=== PATIENT | male | born 2000 | race Caucasian/White ===

== ENCOUNTER 2021-02-04 15:15 | Emergency (ER) | payer OTHER, SELFPAY ==
--- NOTE | ~2021-02-04 | CT_ITS ---
EXAMINATION: CT soft tissue neck w con DATE: 02/04/2021 21:39 INDICATION: Right jaw pain and swelling with lymphadenopathy. TECHNIQUE: Computed tomography (CT) of the neck was performed with 75 mL Omnipaque-350 intravenous co ntrast. Automated exposure control and iterative reconstruction technique were employed. The dose-andrea gth product was 504.09 mGy-cm. COMPARISON: None FINDINGS: Thyroid gland is unremarkable. Submandibular and parotid glands are symmetric. There are scattered normal-sized lymph nodes in the neck, no pathologically enlarged lymphadenopathy. This includes a rel atively superficial subcutaneous lymph node at the lateral right base of the neck medially underlying the marker indicating the palpable abnormality of concern which measures 6 mm short axis diameter wh ich is within normal limits. No masses, abscess or other abnormal fluid collections identified. The vasculature is patent and normal in caliber. Mixing artifact from unopacified blood is seen in the ca udal aspect of the bilateral jugular veins. Airway is unremarkable. No osseous abnormalities. Bilate ral temporomandibular joints are normal. Orbits are unremarkable. Superior mediastinum is unremarkabl e. Visualized sinuses and mastoid aircells are well aerated. Lung apices are normal. IMPRESSION: 1. Unremarkable CT of the neck with no pathologically enlarged lymphadenopathy. Reviewed, dictated and finalized at location A.
[2021-02-04 15:43] VITALS: BP 115/69; PULSE 92; RESP 16; TEMP 36.9; O2SAT 99
--- NOTE | 2021-02-04 20:07 | ED.GENADULT ---
HPI - General Adult General Chief complaint: Unspecified Stated complaint: jaw and lymph node swelling Time Seen by Provider: 02/04/21 19:44 History of Present Illness HPI narrative: Patient is a 21-year-old male who presents ER with right-sided jaw pain and swelling. Sent in by his home health for further evaluation. He has been on Augmentin for couple days. No fevers or chills or sweats. Pain is worse with clenching his jaw and with eating. No fevers or chills or sweats. Patient has had speech therapy at home to help with swallowing. Several months back pain patient started off with an eye infection that developed into diffuse neurologic disorder that she has been seen at [facility] and will be seen at [facility]. He does not have a formal diagnosis with left him with some left-sided weakness. Related Data Home Medications Medication Instructions Recorded Confirmed cholecalciferol (vitamin D3) 25 25 mcg PO DAILY 01/10/21 01/10/21 mcg (1,000 unit) capsule gabapentin 300 mg PO DAILY 02/04/21 02/04/21 Allergies Allergy/AdvReac Type Severity Reaction Status Date / Time No Known Allergies Allergy Unknown Verified 02/04/21 19:44 Review of Systems Review of Systems: All systems reviewed & are unremarkable except as noted in HPI and below Constitutional: Constitutional: Denies chills and Denies fever(s) ENT: Denies dental pain, Reports facial pain, Denies mouth lesions, Denies throat swelling and Denies tongue swelling Respiratory: Respiratory: Denies cough and Denies dyspnea PMFSH Past Medical History Medical History (Updated 02/04/21 @ 22:29 by Cornell Artis MD) Functional neurological symptom disorder with abnormal movement Left-sided weakness Surgical History Surgical History (Updated 02/04/21 @ 20:09 by Cornell Artis MD) No pertinent past surgical history Social History Social History (Updated 01/10/21 @ 13:56 by Usha Coreas NP) Smoking status: Never smoker Alcohol intake: never Substance use: never Exam Narrative: GENERAL: Well-appearing, well-nourished, and in no acute distress. HEAD: Normocephalic, atraumatic. EYES: PERRL and EOMI. ENT: Mucous membranes moist. No obvious facial swelling. Mild tenderness over the right masseter. NECK: Supple. No anterior cervical chain lymphadenopathy. Small lymph node right posterolateral neck. CHEST: Clear to auscultation. No respiratory distress. HEART: Regular rate and rhythm. Normal peripheral pulses. SKIN: Warm, dry, no rash. NEURO: Alert and oriented x3. Facial tics noted. Course Course Emergency Course: Patient may have increased discomfort from doing speech therapy and other oral exercises. Additionally patient also has facial tics may have some discomfort from repetitive movements. Recommend continuing home meds and adding anti-inflammatory medication. Follow-up with PCP. He does have ENT follow-up as well. Vital Signs Vital signs: Vital Signs Temperature 98.4 F 02/04/21 15:43 Pulse Rate 92 02/04/21 15:43 Respiratory Rate 16 02/04/21 15:43 Blood Pressure 115/69 02/04/21 15:43 Pulse Oximetry 99 02/04/21 15:43 Temperature 98.4 F 02/04/21 15:43 Pulse Rate 92 02/04/21 15:43 Respiratory Rate 16 02/04/21 15:43 Blood Pressure 115/69 02/04/21 15:43 Pulse Oximetry 99 02/04/21 15:43 Medical Decision Making Vital Signs Vital Signs: Vital Signs Temperature 98.4 F 02/04/21 15:43 Pulse Rate 92 02/04/21 15:43 Respiratory Rate 16 02/04/21 15:43 Blood Pressure 115/69 02/04/21 15:43 Pulse Oximetry 99 02/04/21 15:43 Temperature 98.4 F 02/04/21 15:43 Pulse Rate 92 02/04/21 15:43 Respiratory Rate 16 02/04/21 15:43 Blood Pressure 115/69 02/04/21 15:43 Pulse Oximetry 99 02/04/21 15:43 Lab Data Result diagrams: 02/04/21 20:42 02/04/21 20:42 Labs: Lab Results 02/04/21 02/04/21 Range/Units 20:42 20:42 WBC 5.6 (4
[2021-02-04 20:51] LABS: Basophils Percent Auto 0.4 % (0.2-1.2); Eosinophils Absolute Auto 0.2 K/mm3 (0-0.3); Hematocrit 47.6 % (42.0-52.0); Hemoglobin 15.8 g/dL (14.0-18.0); Immature Granulocyte Absolute 0.02 K/mm3 (0.00-0.031); Immature Granulocyte Percent A 0.4 % (0-0.5); Lymphocytes Absolute Auto 1.46 K/mm3 (0.9-3.2); Lymphocytes Percent Auto 26.1 % (18.3-44.2); Mean Corpuscular HGB Conc 33.2 g/dl (32-36); Mean Corpuscular Hemoglobin 28.1 pg (26-34); Mean Corpuscular Volume 84.7 fl (80-100); Mean Platelet Volume 10.4 fl (7.4-10.4); Monocytes Absolute Auto 0.4 K/mm3 (0.1-0.6); Monocytes Percent Auto 7.7 % (2.6-8.5); Neutrophils Absolute Auto 3.5 K/mm3 (1.3-6.7); Neutrophils Percent Auto 62.4 % (45.5-73.1); Platelet Count Result 214 k/mm3 (150-375); Red Blood Count 5.62 M/mm3 (4.6-6.20); Red Cell Distribution Width 12.8 % (11.5-14.5); White Blood Count 5.6 K/mm3 (4.5-10.0)
[2021-02-04 21:00] LABS: Alanine Aminotransferase 17 U/L (4-50); Albumin Level 5.1 g/dL (3.5-5.1); Alkaline Phosphatase 80 U/L (38-126); Anion Gap 10 mmol/L (8-16); Aspartate Amino Transferase 28 U/L (17-59); Bilirubin,Total 0.5 mg/dL (0.2-1.3); Blood Urea Nitrogen 16 mg/dL (9-20); Calcium 9.3 mg/dL (8.4-10.2); Carbon Dioxide 31 mmol/L (22-30); Chloride 100 mmol/L (98-107); Estimated Glomerular Filt Rate > 60; Glucose 136 mg/dL (65-110); Potassium 3.9 mmol/L (3.4-5.0); Sodium 141 mmol/L (137-145)
== END 2021-02-04 23:08 | disposition home or self-care (01) ==
PROVIDERS: Physician Assistant; Emergency Provider Emergency Medicine; PCP Family Medicine
DX: R68.84 Jaw pain (principal); F44.4 Conversion disorder with motor symptom or deficit
CPT/HCPCS: 36415; 70491; 80053; 85025; 99284; Q9967

== ENCOUNTER → 2021-07-28 12:45 | Outpatient (CLI) | payer OTHER, SELFPAY ==
--- NOTE | ~2021-07-28 | US_ITS ---
EXAMINATION:US venous doppler LE LT INDICATION:Left leg pain with loss of movement TECHNIQUE: Multiple grayscale, color flow and Doppler images of the left lower extremity deep venous systems were obtained and reviewed. COMPARISON:No prior studies for comparison. FINDINGS: The common femoral, superficial femoral and popliteal veins demonstrate normal respiratory variation, augmentation and compressibility. Color flow is also seen within the posterior tibial, pe roneal, greater saphenous and profunda veins. IMPRESSION: 1: No lower extremity deep venous thrombosis. Reviewed, dictated and finalized at location B.
== END ==
PROVIDERS: PCP Nurse Practitioner Family; Visit Provider Nurse Practitioner Family
DX: M79.652 Pain in left thigh (principal)
CPT/HCPCS: 93971